=== PATIENT | female | born 1985 | race Hispanic/Latino ===

== ENCOUNTER 2022-12-10 01:12 | Day surgery (SDC) | payer OTHER, SELFPAY ==
[2022-11-24 13:44] VITALS: BMI 43.4
--- NOTE | 2022-12-09 14:44 | P.HP_ITS ---
History of Present Illness History of Present Illness Consent: Risks, benefits, and alternatives have been discussed and questions answered. Patient agrees to proceed with procedure. Chief complaint: dysphagia Narrative: Latrice Mae is a 37 year old female referred because of a problem with belching At acid reflux. Since August, she has had excessive belching. This will be again this as she wakes up. This seems to aggravate her acid reflux that she will occasionally regurgitate something at the back of her throat. She has had a little more heartburn with this as well. She does use a PPI or acid urologist physician regularly. She denies food getting stuck but after burping several times he might feel fullness in throat Review of Systems Review of Systems: All systems reviewed & are unremarkable except as noted in HPI and below PMFSH Past Medical History Medical History Anxiety Family History Family History Father Hypertension Mother Breast cancer Diabetes mellitus Sibling Multiple sclerosis Grandparent Hypertension Heart disease Lupus Grandparent Breast cancer Liver cancer Cerebrovascular accident Social History Social History Smoking status: Never smoker Alcohol intake: current Alcohol use details: drinks a cocktail occasionally Substance use: never Lack of Transportation: No Lack of Food: Never True Current Housing: I Have Housing Concerned About Future Housing: No Difficulty Paying Gas/Electric Bills: No Difficulty Paying for Meds: No Currently Unemployed: No Education: Associate Degree Difficulty w/ Childcare or Family Care: No Living arrangements: with family Meds Home Medications and Allergies Home Medications Medication Instructions Recorded Confirmed Type hcfaxar-jwrvlrdaapchv-lialahat 250 1 tablet PO Q4-6H PRN Allergy 04/22/22 11/24/22 History mg-250 mg-65 mg tablet (Excedrin Symptoms Extra Strength) fluticasone propionate 50 1 spray intranasal DAILY 04/22/22 11/24/22 History mcg/actuation nasal spray,suspension (Children's Flonase Allergy Relief) loratadine 10 mg tablet (Allergy 10 mg PO DAILY 04/22/22 11/24/22 History Relief (loratadine)) Allergies Allergy/AdvReac Type Severity Reaction Status Date / Time cat dander Allergy Intermediate Unknown Verified 11/24/22 13:43 house dust mite Allergy Intermediate Unknown Verified 11/24/22 13:43 morphine AdvReac Severe Unknown Verified 11/24/22 13:43 Exam Const: General: alert Orientation/consciousness: patient oriented x3 Resp: Auscultation: clear to auscultation bilaterally Cardio: Rhythm: regular rhythm GI: GI Palp: Yes Soft to palpation and No Tenderness to palpation present (GI) Neuro: General: patient oriented x3 Assessment and Plan Assessment and plan (1) GERD (gastroesophageal reflux disease): Code(s): K21.9 - Gastro-esophageal reflux disease without esophagitis Status: Acute Assessment and Plan: EGD with possible biopsy or dilatation or cautery.
[2022-12-10 07:46] VITALS: BP 109/61; PULSE 72; RESP 18; TEMP 36.2; O2SAT 72; BMI 41.8
[2022-12-10] MEDS: LACTATED RINGERS 1,000 ML 150 ML IV CONT (08:09)
[2022-12-10 08:59] VITALS: BP 96/58; PULSE 58; RESP 24; O2SAT 95
[2022-12-10 09:09] VITALS: BP 116/83; PULSE 62; RESP 27; O2SAT 99
[2022-12-10 09:19] VITALS: BP 121/79; PULSE 56; RESP 20; O2SAT 100
== END 2022-12-10 09:37 | disposition home or self-care (01) ==
PROVIDERS: PCP Emergency Medicine; Visit Provider Internal Medicine Gastroenterology
PROC: 0DJ08ZZ Inspection of Upper Intestinal Tract, Via Natural or Artificial Opening Endoscopic (ICD-10-PCS; CPT 43235; principal; 2022-12-10 09:00)
DX: K20.0 Eosinophilic esophagitis (principal); K22.2 Esophageal obstruction; K44.9 Diaphragmatic hernia without obstruction or gangrene; K21.9 Gastro-esophageal reflux disease without esophagitis
CPT/HCPCS: 43239; 87081; 88305; J2704; J7120